=== PATIENT | male | born 1975 | race Caucasian/White ===

== ENCOUNTER 2025-01-01 21:29 | Observation (INO) | payer MEDICARE, OTHER, SELFPAY ==
[2025-01-01 19:09] VITALS: BP 146/125
[2025-01-01 19:25] LABS: Hematocrit 46.0 % (39.0-52.0); Hemoglobin 15.7 g/dL (13.0-18.0); Mean Corp Hgb Conc. 34.1 g/dL (33.0-37.0); Mean Corpuscular Volume 97.9 fL (80.0-94.0); Nucleated Red Blood Cells % 0 % (-); Platelet Count 234 10^3/uL (130-400); Red Cell Dist. Width 13.2 % (11.5-14.5)
--- NOTE | 2025-01-01 19:33 | ED.GENMED ---
History of Present Illness
General
Chief Complaint: Heart Rate Problem
Source: patient
Exam Limitations: none
Time Seen by Provider: 01/01/25 19:12
Nursing documentation reviewed up to this point in time: agreed with
History of Present Illness
History of Present Illness:
49 yo male with hx HTN, does not take Metoprolol as prescribed, here for fast heart rate. Pt arrested on DUI, during intake getting BP checked, found to have fast, irregular HR. No hx Afib. Does not feel palpitations. Denies CP, SOB, or any other
symptoms. He states he is being accused of having contraband which he denies and is requesting an xray to prove he has nothing in his abdomen, rectum.
Past History
Past History
ED Past Medical History: HTN
ED Past Surgical History: None
Social History
Tobacco: Smoker
Alcohol: Occasional
Drug: None
Personal:
Living: with family
Employment: Employed
Review of Systems
Review of Systems
Allergies reviewed?: Yes
All Other Systems: ROS reviewed and negative except as documented in HPI and ROS
Respiratory: Denies trouble breathing
Cardiac: Denies chest pain or palpitations
ABD/GI: Denies abdominal pain or nausea
Musculoskeletal: Denies edema
Skin: Reports no symptoms
Neurological: Reports no symptoms
Phy Exam
Physical Exam
Physical Exam:
GENERAL: No acute distress. A&Ox3.
CONSTITUTIONAL: Afebrile.
EYES: clear, conjunctivae normal
ENMT: moist mucus membranes, Pharynx nl
RESPIRATORY: Regular respirations, nonlabored, lungs clear.
CARDIOVASCULAR: Rapid HR, irregular. No murmurs, no rubs.
GI: Soft, nontender, normal BS
MUSCULOSKELETAL: Moves with ease. Well perfused.
SKIN: Warm, dry, pink
PSYCH: Normal mood and affect. Well kept, interactive and appropriate
NEUROLOGIC: Awake, alert and oriented. No focal neurological deficits
Scores
[id number] Score for Afib Stroke Risk
Age in Years (65=0, 65-74=1, >/=75=2): <65
Sex (Female=+1): Male
Congestive Heart Failure History (Yes=+1): No
Hypertension History (Yes=+1): Yes
Stroke/TIA/Thromboembolism History (Yes=+2): No
Vascular Disease History (Yes=+1): No
Diabetes Mellitus (Yes=+1): No
Score: 1
Anticoagulation Recommendations: Consider anticoagulation (as validated in nonvalvular fib)
Course
Orders/Labs/Results
Orders:
Orders
01/01/25 Dinner
Regular
At Your Request: Full Participation
01/01/25 19:08
Electrocardiogram (*1) Urgent
Reason for Study: Atrial Fibrillation
01/01/25 19:09
EKG- Treatment ONCE
01/01/25 19:13
Alcohol Urgent
Complete Blood Count/With Diff Urgent
Comprehensive Metabolic Panel Urgent
Magnesium Urgent
Comment: ADD ON
Phosphorus Urgent
Comment: ADD ON
TSH Urgent
Comment: ADDON
Troponin I Urgent
01/01/25 19:34
Diltiazem 125 mg/125 ml Nss [Cardizem] 125 mg in 125 ml IV NOW
Initial dose in mg/hr, then titrate:: 5
Titrate to keep:: Heart rate 80-100 bpm
Titrate by mg/hr:: 5 mg/hr
Frequency of titrations (minutes):: 15
Maximum dose in mg/hr:: 15
Diltiazem HCl [Cardizem] 10 mg IV NOW STA
01/01/25 19:35
Heparin 4,000 units IV NOW STA
CR Chest - 2 Views Urgent
Comment:
Reason For Exam: Afib w RVR new
01/01/25 19:39
CR Abdomen - 1 View Urgent
Comment:
Reason For Exam: R/O FB
01/01/25 19:45
PTT Urgent
Comment: Obtain baseline before beginning heparin infusion if not already collected
Heparin 48611 Units/250 ml 25,000 units in 250 ml IV PER PROTOCOL
Weight to be used for heparin protocol in kilograms (kg):: 97.4
Protocol:: Cardiac Tx/Acute Coronary
PTT Goal Range to be used:: PTT 73 to 111 seconds
Order type:: Initial
INITIAL Infusion Dose (UNITS/KG/hr) & then follow protocol:: 12 units/kg/hr
Infusion Dose in UNITS/hr & then follow protocol (UNITS/hr):: 1,000
INFUSION RATE in mL/hr & then follow protocol (mL/hr):: 10
PTT less than or equal to 64 seconds:: Increase rate by 200 units/hr (+ 2 mL/hr)
PTT 64.1 to 72.9 seconds:: Increase rate by 100 units/hr (+ 1 mL/hr)
PTT 73 to 111 seconds:: Target Range. No change in rate.
PTT 111.1 to 130.9 seconds:: Decrease rate by 100 units/hr (- 1 mL/hr)
PTT 131 to 199.9 seconds:: HOLD for 1 hr. Then decrease rate by 200 units/hr (- 2 mL/hr)
PTT greater than or equal to 200 seconds:: HOLD for 2 hrs & Notify Provider. Then decrease by 200 units/hr (-
2 mL/hr)
Lab follow-up:: Each change, PTT q6h until 2 consecutive are therapeutic. Then PTT
daily.
01/01/25 20:43
Add On- LAB Urgent
Tests Added?: TSH
Urine Drug Abuse Screen Urgent
Date Specimen was Collected: 01/01/25
Time Specimen was Collected: 23:43
01/01/25 21:05
Admit/Transfer Patient As Directed
Co-Sign Provider:
Level of Care: Observation services
Assign to:: Telemetry
Physician / Group: Sj Mejía
Diagnosis: atrial fibrillation
Reason for Telemetry: Arrhythmia
Date to Stop Telemetry: 01/04/25
Time to Stop Telemetry: 11:00
PRN Pain Medication Management As Directed
May give lesser potent ordered pain med per pt: Yes
preference::
Protocol:: Medication orders for pain may be administered in a
manner that supports deferring to patient preference
when the pt is:
- Requesting an ordered lesser potent pain medication.
Least to most potent pain medications are defined
as: acetaminophen < NSAID < tramadol < opioids
(morphine, oxycodone, hydromorphone).
- Requesting a lesser dose of the same medication IF
ORDERED.
- Requesting a less intrusive route of administration
if both routes are prescribed by the provider (PO <
IV).
01/01/25 21:06
Code Status As Directed
Resuscitation Status: Full Code
01/01/25 21:10
Add On- LAB Urgent
Tests Added?: mag, phos
01/01/25 22:34
Acetaminophen [Tylenol] 650 mg PO Q4HPRN PRN
Diltiazem 125 mg/125 ml Nss [Cardizem] 125 mg in 125 ml IV PER PROTOCOL
Continuous dose without titration in mg/hr:: 5
Additional Titration Instructions:: Do not titrate. Rate change by provider order only.
01/01/25 22:34
CARDIOLOGY CONSULT Routine
Consulting Provider: Kalina Baez
Was physician already notified: Yes
Activity As Directed
Activity Level: Ambulate
INT (Intravenous Needle Therapy) As Directed
Comment: maintain peripheral IV access
Intake/ Output As Directed
Frequency: Per unit guidelines
MSAS SCORE As Directed
MSAS Score 0-4: Repeat MSAS every 2 hours until 0-4 for three consecutive assessments, then every 4 hours x 48
hours.
MSAS Score 5-7: For MILD withdrawl symptoms. Repeat MSAS and RASS every 2 hours
MSAS Score 8-11: For MODERATE withdrawal symptoms. Repeat MSAS and RASS every 1 hour. Consider ICU or IMU
level of care.
MSAS Score > 11: For SEVERE withdrawal symptoms. Repeat MSAS and RASS every 1 hour. Notify provider, consider
ICU level of care.
MSAS Additional Instructions: If no improvement or no decrease in score from severe to moderate within 12
hours, consult psychiatry
MSAS Notify Provider: Notify provider if patient requires more than 10 mg of Lorazepam in eight hour period.
Vital Signs As Directed
Frequency: q4h
Weight As Directed
Frequency: Once
Comment: on admission
DX Deep Vein Thrombosis Video Routine
01/02/25 06:00
Cardiovascular Evaluation IN AM
01/02/25 18:00
Enoxaparin Sodium [Lovenox] 40 mg SC QPM
01/04/25 11:00
DC Protocol for Telemetry ONCE
Abnormal Lab Results
01/01/25
19:13
MCV 97.9 H fL
(80.0-94.0)
MCH 33.4 H pg
(27.0-31.0)
Absolute Monos (auto) 0.8 H 10^3/uL
(0.1-0.6)
Monocytes % 11.5 H %
(1.7-9.3)
Creatinine 0.6 L mg/dL
(0.7-1.3)
Glucose 189 H mg/dl
(70-99)
01/01/25 19:13
01/01/25 19:13
Vital Signs
Initial and Last Documented VS:
Initial Vital Signs
Temp Pulse Resp Pulse Ox
98.8 F 135 18 98
01/01/25 19:06 01/01/25 19:06 01/01/25 19:06 01/01/25 19:06
Last Documented Vital Signs
Temp Pulse Resp BP Pulse Ox
98.2 F 93 20 160/116 98
01/01/25 22:41 01/01/25 22:41 01/01/25 22:41 01/01/25 22:41 01/01/25 22:41
Equipment Operator Warehouse consulted with Physician
Equipment Operator Warehouse consulted with physician?: Yes
Name of Physician Consulted: Gila
MDM/Problems Addressed
Differential Diagnosis Includes:
Afib RVR
MDM/Problems Addressed:
49 yo male with hx HTN, does not take Metoprolol as prescribed, here for fast heart rate. Pt arrested on DUI, during intake getting BP checked, found to have fast, irregular HR. No hx Afib. Does not feel palpitations. Denies CP, SOB, or any other
symptoms. He states he is being accused of having contraband which he denies and is requesting an xray to prove he has nothing in his abdomen, rectum.
EKG: A-fib with RVR heart rate 112
8:15 p.m.
CBC normal
CMP normal
Troponin within normal limits
Plan: Cardizem for rate control, heparin drip started, admit to hospitalist
Hospitalist notified of admission
*Pulse Oximetry
SaO2: 98
Oxygen Mode of Delivery: Room air
Patient hypoxic: no
*Critical Care Note
Total Time (30-74mins, 75-104mins- exclusive of procedures): Not Applicable
ED Attending Note
-
Portions of this chart may have been created with voice recognition software.� Occasional wrong word or��sound alike� substitutions may have occurred due to the inherent limitations of voice recognition software.
Discharge Plan
Departure
Patient Disposition: Admit
Date of Disposition: 01/01/25
Time of Disposition: 20:20
Admit to: Telemetry
Presentation/result/management discussed w/ accepting MD/DO: Hospitalist
Condition: Fair
Discharge Problem:
New onset a-fib
Interventions
Interventions:
*Risk Screen - Suicide Last Done: 01/01/25 19:10
*General Assessment Last Done: 01/01/25 19:10
*Neglect/Abuse Screening Last Done: 01/01/25 19:10
*ED- Fall Risk Assessment Last Done: 01/01/25 19:10
*ED COVID-19 Vaccine History Last Done: 01/01/25 19:10
*Nursing Disposition Last Done: 01/01/25 22:04
ED- Cardiac Assessment Last Done: 01/01/25 19:32
ED- Pulmonary Assessment Last Done: 01/01/25 19:32
Discharge Date and Time
Discharge Date/Time: 01/01/25 22:05
[2025-01-01] MEDS: CARDIZEM 10 MG IV (19:38)
[2025-01-01] MEDS: CARDIZEM 125 IV (19:42)
[2025-01-01 19:54] LABS: ALT (SGPT) 32 U/L (0-50); AST (SGOT) 35 U/L (17-59); Albumin 4.7 g/dl (3.5-5.0); Alkaline Phosphatase 50 U/L (38-126); Blood Urea Nitrogen 14 mg/dl (9-20); Calcium 9.5 mg/dl (8.4-10.2); Carbon Dioxide 27 mmol/L (22-30); Chloride 105 mmol/L (98-107); Estimated Creatinine Clearance > 125 ml/min; Glucose 189 mg/dl (70-99); Potassium 4.6 mmol/L (3.5-5.1); Sodium 139 mmol/L (135-145); Total Protein 8.1 g/dl (6.3-8.2); eGFR > 60.00
[2025-01-01 19:59] LABS: Troponin I < 0.012 ng/ml
[2025-01-01 20:00] VITALS: BP 131/94
[2025-01-01 20:05] LABS: APTT 26.4 Sec (23.4-35.0)
[2025-01-01] MEDS: HEPARIN 4000 UNITS IV (20:14)
[2025-01-01] MEDS: HEPARIN 25000 UNITS/250 ML IV (20:15)
--- NOTE | 2025-01-01 20:23 | HPS.HSE ---
Family Physician
-
Family Physician: [facility] [place]
Chief Complaint
-
irregular heart rate
History of Present Illness
Patient is a 49-year-old male with past medical history significant for hypertension who presented to [facility] ED for evaluation for irregular heart rate. Patient was undergoing standard evaluation at [facility] for intake when nursing realized patient had a
irregular heart rate that was tachycardic and was sent to ED for evaluation. EKG in ED showed atrial fibrillation with RVR. Patient states he has never had atrial fibrillation before. He denies any symptoms, no chest pain, palpitations, dizziness or
shortness of breath.
Medical History
Past Medical History
Past Medical History: Reports Other
Additional Past Medical History:
hypertension
Past Surgical History: Reports None
Social History
Tobacco: Smoker (0.75 pack per day)
Alcohol: Daily (0.5 pint of vodka per day)
Drug: None
Living: Alone
Employment: Not Employed
Family History
Family History: Other (Mother: CAD, Hx VA; Father: DM, Hx DVT, Alzheimer's)
Allergies / Home Medications
Allergies reflects when Allergies were last updated in [facility].
Home Medications with original date entered in [facility]
Allergy/Medication List:
Allergies
Allergy/AdvReac Type Severity Reaction Status Date / Time
No Known Allergies Allergy Unverified 02/24/13 17:22
Home Medications
No Meds [No Current Medications] 01/01/25
Review of Systems
-
History Source: Patient
Constitutional: Reports No Symptoms
EENT: Reports No Symptoms
Respiratory: Reports No Symptoms
Cardiac: Reports No Symptoms
Abdomen/GI: Reports No Symptoms
: Reports No Symptoms
Musculoskeletal: Reports No Symptoms
Skin: Reports No Symptoms
Neurological: Reports No Symptoms
Endocrine: Reports No Symptoms
Hematologic/Lymphatic: Reports No Symptoms
Psych: Reports No Symptoms
Physical Exam
Vital Signs
Vital Signs
Temp Pulse Resp BP Pulse Ox
98.8 F 94 17 146/125 98
01/01/25 19:06 01/01/25 19:45 01/01/25 19:45 01/01/25 19:38 01/01/25 19:45
Physical Exam
General: Well Developed, Well Nourished, No Apparent Distress, Comfortable, Conversant and Obese
HEENT: NormoCephalic, Moist mucous membranes and Atraumatic
Respiratory: Clear and Non Labored Respirations
Cardiac: S1/S2 and Irregular Rhythm; No Murmur, Rub or Gallop
Breast: Deferred by me
GI: Soft, Non Tender, Non Distended and Normal Bowel Sounds; No Organomegaly
Rectal: Deferred by Provider
Genito-urinary: Deferred by me
Musculoskeletal: No Clubbing, No Cyanosis and No Edema
Skin: Warm and IV/Catheter Site
Neuro: Awake, AO x 3 and Nonfocal/grossly intact
Hematologic/Lymphatic: No Lymphadenopathy
Psych: Calm
Laboratory Results
-
01/01/25 19:13
01/01/25 19:13
Laboratory Results
APTT 26.4 Sec (23.4-35.0) 01/01/25 19:45
Total Bilirubin 0.6 mg/dl (0.2-1.3) 01/01/25 19:13
AST 35 U/L (17-59) 01/01/25 19:13
ALT 32 U/L (0-50) 01/01/25 19:13
Alkaline Phosphatase 50 U/L (38-126) 01/01/25 19:13
Troponin I < 0.012 ng/ml 01/01/25 19:13
Data Reviewed
-
Medical Tests (Nuc Med, Echo, EKG etc): Report Reviewed by me (EKG: ATRIAL FIBRILLATION WITH RAPID VENTRICULAR RESPONSE)
Lab Data: Labs Reviewed by me
Impression/Plan
-
IMPRESSION/PLAN:
#new onset atrial fibrillation
EKG: ATRIAL FIBRILLATION WITH RAPID VENTRICULAR RESPONSE
- Admit to telemetry
- Consult Cardiology
- IV Diltiazem
- no anticoagulant requirement ([id number] Score 1)
#hypertension
noncompliant with prescribed medication
- monitor VS
#alcohol dependency
reports drinking 0.5 pint of vodka per day, last drank last evening (12/31/2024)
- MSAS score
- consider adding protocol if signs of withdraw present
Code status: Full code
DVT prophylaxis: Lovenox sq
--- NOTE | 2025-01-01 20:30 | W.PN.UPDATE ---
Update Note
Progress Note Update
Patient seen in conjunction with LAST REPAIRER. I agree with the findings on history and physical exam. I concur with assessment plan unless stated otherwise.
Briefly, this is a 49-year-old with past medical history of hypertension was on metoprolol but does not take it regularly presenting to the emergency department from incarceration where he was being held for a DUI. During the intake patient
reported palpitations and was found to be tachycardic. He had no other symptoms and was brought to the emergency department for evaluation.
He denies any prior history of atrial fibrillation. He drinks alcohol, denies drug use.
In the emergency department he was tachycardic to S1 is 130 and found to be in atrial fibrillation. Blood pressure was 140/100 with a pulse rate of the 90s currently. He is afebrile with a normal oxygen saturation on room air. His troponin is
negative. ECG shows atrial fibrillation at a rate of 112. CBC is unremarkable, electrolytes BUN/creatinine were normal.
Patient was placed on diltiazem drip in the emergency department.
Assessment and plan
New atrial fibrillation�
- admit to telemetry
- continue diltiazem at fixed rate
- CHADS2 = 1, low risk for CVA. Hold off AC for now. Consider low dose aspirin if no bleeding risk
- echo, tsh, drug screen, cardiology consult
- no h/o etoh withdrawal, drinks 1 pint vodka daily. Last drink today. MSAS protocol for now.
DVT PPX - SCDs
Code status - Full Code
[2025-01-01 21:00] VITALS: BP 143/105
[2025-01-01 21:33] LABS: Magnesium 1.9 mg/dl (1.6-2.3)
[2025-01-01 21:47] LABS: TSH 0.94 uIU/ml (0.47-4.68)
--- NOTE | 2025-01-01 22:25 | PTCARENOTE ---
Pt received from ED via stretcher at 2215. Pt pleasant, AAOx3, VSS, absent of pain, and able to ambulate into room. Pt receptive to room and call kerns. Pt bed in lowest position and call kerns within reach. Pt educated on importance of call kerns
usage, pt relays understanding and cooperation. Will continue with current plan of care.
[2025-01-01 22:41] VITALS: BP 160/116
--- NOTE | 2025-01-01 22:51 | W.PN.UPDATE ---
Update Note
Progress Note Update
-Patient had pauses up to 3.56 sec, bp 152/93, hr 85. asymptomatic.
-Currently on Cardizem gtt will hold and EKG ordered.
-Will continue tele
[2025-01-01 23:52] VITALS: BMI 29.5
--- NOTE | 2025-01-01 23:55 | PTCARENOTE ---
At 2236, pt monitor showed a 3.56sec pause. As pt was currently receiving Cardizem at 5mls/hr, this RN notified Christen VACA. FILTER TANK TENDER HELPER ordered for Cardizem to be held and EKG to be obtained. This RN held Cardizem gtt and completed EKG. At 2355,
pt showed to be in NSR on monitor. Will continue with current plan of care.
[2025-01-02] VITALS (7 sets, daily range): BP systolic 123–159; BP diastolic 86–108
[2025-01-02] MEDS: THIAMINE INJECTION 200 MG IV ×2 (08:21→19:19)
[2025-01-02] MEDS: FOLVITE 1 MG PO (08:21)
[2025-01-02 08:47] LABS: HDL Cholesterol 78 mg/dl; LDL Cholesterol, Calculated 136 mg/dl; Very Low Density Lipoprotein 15 mg/dl (0-30)
--- NOTE | 2025-01-02 10:34 | CON.CAR ---
Addendum entered and electronically signed by Jesus Collier MD 01/02/25 16:12:
I saw and examined the patient.
The Medical Records Secretary's note was reviewed and I agree with the note.
Comment:
GEN: No distress, awake, Ox3
HEENT: supple, anicteric, mmm
LUNGS: CTA, no wheezes/rales
CV: Reg, S1/S2, 1/6 syst LSB, no gallop
ABD: soft, BS+, NT/ND
EXT: No edema
NEURO: Gross non-focal
SKIN: No rash
Plan:
49-year-old male with past medical hypertension, alcohol use who was admitted to correctional facility for DUI presents with new onset atrial flutter. The patient was at penitentiary and was found to be tachycardic and was sent to the emergency room and
was found to be in rapid atrial flutter. He was placed on a Cardizem drip and spontaneous converted back into sinus rhythm.
CHADS VASC is 1. Plan is to start Xarelto 20mg daily. Start Cardizem 120mg daily
Check Echo today.
Recommend avoiding alcohol.
Will arrange for outpatient monitor and office visit follow-up after monitor to better assess atrial flutter burden. This will be done when he is out of penitentiary.
Original Note:
Consultation
Consultation Request
Date/Time Consultation Performed: 01/02/25
Requesting Provider: Dr. Mejía
Performing Provider: Alana Buckner PA-C for Dr. Collier
Reason for Consultation: afib
Medical History
-
Chief Complaint: tachycardia
History of Present Illness:
Patient is a 49-year-old male with past medical history of hypertension, alcohol use disorder, ongoing tobacco use who was noted to be tachycardic while imprisoned for DUI and sent to [facility] for further evaluation. He reports he felt
stressed/anxious, however denies specific feelings of palpitations, associated chest pain, shortness of breath, lightheadedness. He denies history of arrhythmias in the past to his knowledge. He was placed on IV Cardizem drip overnight and
spontaneously converted to sinus rhythm. Cardiology consulted for evaluation. He reports he has recently cut down on his alcohol use, goes to and outpatient therapy and rehab program.
PMH:
HTN
ETOH use disorder
Ongoing tobacco use
Past Medical History
Past Medical History: Other (in HPI)
Social History
Tobacco: Smoker (1 ppd)
Alcohol: Daily (2 doubles daily)
Drug: None
Personal:
Living: Alone
Employment: Employed (electro mechanical engineer)
Family History
Family History: CAD and Diabetes
Allergies / Home Medications
Allergy/AdvReac Type Severity Reaction Status Date / Time
No Known Allergies Allergy Unverified 02/24/13 17:22
�Medication �Instructions �Recorded �Confirmed �Type
No Meds [No Current Medications] 01/01/25 01/01/25 History
Review of Systems
-
History Source: Patient
All other systems: Negative unless noted
Physical Exam
Vital Signs
Temp Pulse Resp BP Pulse Ox
98.5 F 71 16 148/107 98
01/02/25 07:00 01/02/25 07:00 01/02/25 07:00 01/02/25 07:00 01/02/25 07:00
Lab Results
01/01/25 19:13
01/01/25 19:13
Troponin I < 0.012 ng/ml 01/01/25 19:13
Physical Exam
General: No Apparent Distress and Comfortable
HEENT: Normocephalic, Anicteric and Moist Mucous Membranes
Respiratory: Clear and Non Labored Respirations
Cardiac: S1/S2 and Regular Rhythm
GI: Soft, Non Tender, Non Distended and Normal Bowel Sounds
Musculoskeletal: No Clubbing, No Cyanosis and No Edema
Skin: Warm and Dry
Neuro: AO x 3
Impression / Plan
-
Primary Commercial Loan Coordinator: none
Assessment:
Presentation with tachycardia
Atrial fibrillation vs aflutter with RVR, s/p spontaneous conversion to SR, new diagnosis
ETOH withdrawal
HTN, uncontrolled
ETOH use disorder
Ongoing tobacco use
ECHO 01/02/25: pending
Plan:
- Patient presented with tachycardia noted during physical in care home.
- EKGs read as atrial fibrillation, however on my review may be atrial flutter.
- Was started on IV Cardizem overnight and spontaneously converted to sinus rhythm. Maintaining sinus rhythm at this time
- Repeat EKG
- Check echo
- CXR without acute process
- TSH within normal limits
- Troponin negative x 1
- Discussed importance of alcohol and tobacco cessation.
- Given uncontrolled hypertension and atrial fibrillation, will plan to add po Cardizem CD
- [id number] score of 1 given hypertension. Discussed anticoagulation at least for short term and patient agreeable. Will assess cost to patient of Xarelto. he denies recent falls/bleeding issues.
- Will arrange outpatient cardiac follow-up
Data Reviewed
-
EKG: Tracing Personally Visualized and interpreted
Radiology: Report Reviewed by me
Labs: Labs Reviewed by me
Old Records: Reviewed
--- NOTE | 2025-01-02 11:10 | W.PN.HOSP.TC ---
Today's Communication/Plan
-
see PN
Assessment / Plan
Assessment / Plan
49yo M with PMHx of HTN, daylty alcohol consumption (2-3 drinks of vodka) brought by police after was stopped for DUI, found Afib with RVR in ED and also managed for withdrawal.
A/P:
#Afib with RVR, new onset
most liekly caused by alcohol
Cardio consult: recommended initial anticoagulation
TSH WNL
Echo
telemetry
COnverted to sinus on cardezem - continue oral
#Essential HTN
titrate to normotension
#Alcohol abuse with withdrawal
thiamine/FOlate
MSAS and Ativan PRN - mild withdrawal
Alcohol cessation counseling
CM for rehab
#Hyperglycemia
on CMP on admission
check HgbA1c
no Hx of DM
#macrocytosis
2/2 alcohol consumption
DVT ppx Xarelto
Full code
I have spent at least 51min reviewing chart, test results, communication with consultants and providing direct patient care
Anticipated Discharge: 24 - 48 hours
Subjective/Interval History
-
Date of Service: January 02, 2025
Objective Data
-
Vital Signs:
Vital Signs
Temp Pulse Resp BP Pulse Ox
98.5 F 71 16 148/107 98
01/02/25 07:00 01/02/25 07:00 01/02/25 07:00 01/02/25 07:00 01/02/25 07:00
I&O
01/01/25 01/02/25 01/03/25
06:59 06:59 06:59
Intake Total 300 / 300
Balance 300 / 300
Review of Systems
-
History Source: Patient
All other systems: Reviewed and negative
Physical Exam
-
General: No Apparent Distress
HEENT: Normocephalic
Respiratory: Clear to Auscultation
Cardiac: Regular Rhythm
GI: Soft, Nontender and Nondistended
Musculoskeletal: No Clubbing, No Cyanosis and No Edema
Neuro: Awake, Alert, Oriented, AO x 3 and Tremors
Psych: Calm
[2025-01-02] MEDS: CARDIZEM CD 120 MG PO (11:36)
[2025-01-02 12:12] LABS: Glycohemoglobin (HgbA1c) 5.5 % (4.0-5.6)
--- NOTE | 2025-01-02 14:15 | CM ---
Initial assessment completed. Patient is a 49-year-old male with past medical history significant for hypertension who presented to [facility] ED for evaluation for irregular heart rate. Patient admitted from [facility]. Per chart, patient was stopped by police
for DUI. Per chart, patient attends AA and OP therapy rehab for ETOH prior to arrest.
Patient admitted obs. OOBS form verbally reviewed, copy on chart
Plan: Return to [facility] vs home
[2025-01-02] MEDS: XARELTO 20 MG PO (17:13)
[2025-01-03 03:00] VITALS: BP 145/106
[2025-01-03] MEDS: ATIVAN 1 MG PO (03:56)
[2025-01-03 07:00] VITALS: BP 153/109
[2025-01-03] MEDS: THIAMINE INJECTION 200 MG IV (08:25)
[2025-01-03] MEDS: FOLVITE 1 MG PO (08:25)
--- NOTE | 2025-01-03 09:04 | W.PN.CARDCBS ---
Today's Communication / Plan
-
Had some sinus bradycardia overnight. Would stop diltiazem and start Toprol 12.5 mg daily.
Blood pressure is mildly elevated. Will stop diltiazem and start amlodipine 5 mg daily
Continue Xarelto
Okay for [facility] to [facility] from cardiology standpoint
Will arrange follow-up with heart monitor and then office visit once he is out of custodial.
Impression / Plan
-
Primary Vacuum Tank Tender: none
Assessment:
Presentation with tachycardia
Aflutter with RVR, s/p spontaneous conversion to SR, new diagnosis
ETOH withdrawal
HTN, uncontrolled
ETOH use disorder
Ongoing tobacco use
ECHO 01/02/25: EF 55 to 60% with no significant valve disease.
Plan:
-Remains in sinus rhythm. Having some bradycardia overnight. Will stop Cardizem and start Toprol 12.5 mg daily. Will add amlodipine 5 mL daily to help with blood pressure.
-Echo with preserved ejection fraction and no significant valve disease.
- CXR without acute process
- TSH within normal limits
- Troponin negative x 1
- Discussed importance of alcohol and tobacco cessation.
- [id number] score of 1 given hypertension. Discussed anticoagulation at least for short term and patient agreeable. Will assess cost to patient of Xarelto. he denies recent falls/bleeding issues.
- Will arrange outpatient cardiac follow-up. Plan will be for him to reach out when he is out of custodial to get set up with a 7-day heart monitor and then I will see him back in the office.
Progress Note - Vacuum Tank Tender
Subjective
Date of Service: January 03, 2025
Overall feels well. Having some mild withdrawal symptoms. Heart rates were in the 40s to 50s overnight but no dizziness. No further atrial arrhythmias.
Objective
Labs:
01/01/25 19:13
01/01/25 19:13
Labs
Hgb 15.7 g/dL (13.0-18.0) 01/01/25 19:13
Hct 46.0 % (39.0-52.0) 01/01/25 19:13
Plt Count 234 10^3/uL (130-400) 01/01/25 19:13
APTT 26.4 Sec (23.4-35.0) 01/01/25 19:45
Sodium 139 mmol/L (135-145) 01/01/25 19:13
Potassium 4.6 mmol/L (3.5-5.1) 01/01/25 19:13
BUN 14 mg/dl (9-20) 01/01/25 19:13
Creatinine 0.6 mg/dL (0.7-1.3) L 01/01/25 19:13
Glucose 189 mg/dl (70-99) H 01/01/25 19:13
Troponins
01/01/25
19:13
Troponin I < 0.012
Vital Signs and I&O:
Vital Signs
Temp Pulse Resp BP Pulse Ox
97.6 F 63 17 153/109 98
01/03/25 07:00 01/03/25 07:00 01/03/25 07:00 01/03/25 07:00 01/03/25 07:00
Vital Signs
Temp Pulse Resp BP Pulse Ox
97.6 F 63 17 153/109 98
01/03/25 07:00 01/03/25 07:00 01/03/25 07:00 01/03/25 07:00 01/03/25 07:00
Intake & Output
01/01/25 01/02/25 01/03/25 01/04/25
06:59 06:59 06:59 06:59
Intake Total 300 / 300
Balance 300 / 300
Physical Exam
Physical Exam
GEN: No distress, awake, Ox3
HEENT: supple, anicteric, mmm
LUNGS: CTA, no wheezes/rales
CV: Reg, S1/S2, 1/6 syst LSB, no gallop
ABD: soft, BS+, NT/ND
EXT: No edema
NEURO: Gross non-focal
SKIN: No rash
[2025-01-03] MEDS: CARDIZEM CD PO (09:15)
[2025-01-03] MEDS: NORVASC 5 MG PO (09:38)
[2025-01-03] MEDS: TOPROL XL 12.5 MG PO (09:38)
--- NOTE | 2025-01-03 09:55 | W.PN.HOSP.TC ---
Today's Communication/Plan
-
DC
Assessment / Plan
Assessment / Plan
49yo M with PMHx of HTN, daylty alcohol consumption (2-3 drinks of vodka) brought by police after was stopped for DUI, found Afib with RVR in ED and also managed for withdrawal. No signs of withdrawal on the day of D/C. Ativan received >12h before
discharge. Medically stable for d/c to shelter
A/P:
#Afib with RVR, new onset
most likely caused by alcohol
Cardio consult: recommended initial anticoagulation
TSH WNL
Echo
telemetry
Converted to sinus on Cardizem - developed bradycardia on oral doses, so switch to Amlodipine with advise in outpatient f/u.
#Essential HTN
titrate to normotension
#Alcohol abuse with withdrawal
thiamine/FOlate
MSAS and Ativan PRN - mild withdrawal
Alcohol cessation counseling
CM for rehab
#Hyperglycemia
on CMP on admission
HgbA1c 5.5%
no Hx of DM
#macrocytosis
2/2 alcohol consumption
DVT ppx Xarelto
Full code
I have spent at least 51min reviewing chart, test results, communication with consultants and providing direct patient care
Anticipated Discharge: Today
Subjective/Interval History
-
Date of Service: January 03, 2025
Objective Data
-
Vital Signs:
Vital Signs
Temp Pulse Resp BP Pulse Ox
97.6 F 63 17 153/109 98
01/03/25 07:00 01/03/25 07:00 01/03/25 07:00 01/03/25 07:00 01/03/25 07:00
I&O
01/02/25 01/03/25 01/04/25
06:59 06:59 06:59
Intake Total 300 / 300 240 / 240
Balance 300 / 300 240 / 240
Review of Systems
-
History Source: Patient
All other systems: Reviewed and negative
Physical Exam
-
General: No Apparent Distress
HEENT: Normocephalic
Respiratory: Clear to Auscultation
GI: Soft, Nontender and Nondistended
Neuro: Awake, Alert, Oriented and AO x 3; Negative Tremors
Psych: Calm
--- NOTE | 2025-01-03 10:00 | W.DCSUMMARY ---
Discharge Summary
Discharge Data
Date of Admission: 01/01/25
Date of Discharge: 01/03/25
-
Pending Results: No
Hospital Course
49yo M with PMHx of HTN, daylty alcohol consumption (2-3 drinks of vodka) brought by police after was stopped for DUI, found Afib with RVR in ED and also managed for withdrawal. No signs of withdrawal on the day of D/C. Ativan received >12h before
discharge. Medically stable for d/c to senior care
I have spent at least 51min reviewing chart, test results, communication with consultants and providing direct patient care'
Patient was manage dofr:
#Afib with RVR, new onset
#Essential HTN
#Alcohol abuse with withdrawal
#Hyperglycemia
#macrocytosis
Discharge Plan
-
Patient Disposition: [facility]
Discharge Diagnosis/Procedures: new onset Afib
Diet: Low Cholesterol
Activity: As tolerated
Others Tests: 7 day desk monitor, Dr. Collier's office will call you to schedule date/time to come in for placement
Referrals:
Dayana Rodriguez PA-C [Specified Professional Personl, Cardiology] - 01/31/25 7:40 am
Referral Note: You have a cardiology follow-up appointment at the [facility]. Please call with questions
[facility] [Family Provider, General]
Prescriptions:
New
amlodipine 5 mg Tablet
5 mg PO DAILY Qty: 30 0RF
folic acid 1 mg Tablet
1 mg PO DAILY Qty: 30 0RF
metoprolol succinate 25 mg Tablet Extended Release 24 Hr
12.5 mg PO DAILY Qty: 30 0RF
thiamine mononitrate (vit B1) 100 mg Tablet
100 mg PO DAILY Qty: 30 0RF
rivaroxaban [Xarelto] 20 mg Tablet
20 mg PO QPM Qty: 30 0RF
Discharge Orders:
Discharge Patient (As Directed); Ordered 01/03/25
Ordered By: Clifford Capellan
Discharge Date and Time
Print Language: ARMENIAN
[2025-01-03 11:06] VITALS: BP 156/105
[2025-01-03 11:38] VITALS: BP 134/88
--- NOTE | 2025-01-03 11:49 | CM ---
Patient will d/c today. Will return to [facility]
Report: [phone]
== END 2025-01-03 12:15 ==
LOC: 4 WEST ACU 21:29
PROVIDERS: Nurse Practitioner Family; Registered Nurse; ADMITTING PHYSICIAN Internal Medicine; ATTENDING PHYSICIAN Internal Medicine; CONSULT PHYSICIAN Internal Medicine Cardiovascular Disease; EMERGENCY PHYSICIAN Emergency Medicine
DX: F10.139 Alcohol abuse with withdrawal, unspecified (principal); R00.0 Tachycardia, unspecified; I11.9 Hypertensive heart disease without heart failure; F17.210 Nicotine dependence, cigarettes, uncomplicated; I48.91 Unspecified atrial fibrillation; R00.1 Bradycardia, unspecified; I48.92 Unspecified atrial flutter; I45.10 Unspecified right bundle-branch block; R73.9 Hyperglycemia, unspecified; D75.89 Other specified diseases of blood and blood-forming organs; Z91.148 Patient's other noncompliance with medication regimen for other reason; Z56.0 Unemployment, unspecified; Z83.3 Family history of diabetes mellitus; Z82.49 Family history of ischemic heart disease and other diseases of the circulatory system; Z79.01 Long term (current) use of anticoagulants; Z65.3 Problems related to other legal circumstances
CPT/HCPCS: 71046; 74018; 80053; 80061; 80306; 82077; 83036; 83735; 84100; 84443; 84484; 85025; 85730; 87070; 93005; 93306; 96374; 96375; 96376; 99285; G0378

== ENCOUNTER 2025-04-23 06:26 | Day surgery (SDC) | payer MEDICARE, SELFPAY ==
[2025-04-07 09:20] VITALS: BMI 32.1
[2025-04-07 09:45] LABS: Hematocrit 48.9 % (39.0-52.0); Hemoglobin 16.8 g/dL (13.0-18.0); Mean Corp Hgb Conc. 34.4 g/dL (33.0-37.0); Mean Corpuscular Volume 98.6 fL (80.0-94.0); Nucleated Red Blood Cells % 0 % (-); Platelet Count 226 10^3/uL (130-400); Red Cell Dist. Width 13.2 % (11.5-14.5)
[2025-04-07 10:00] LABS: ALT (SGPT) 21 U/L (0-50); AST (SGOT) 21 U/L (17-59); Albumin 4.8 g/dl (3.5-5.0); Alkaline Phosphatase 67 U/L (38-126); Blood Urea Nitrogen 18 mg/dl (9-20); Calcium 9.6 mg/dl (8.4-10.2); Carbon Dioxide 30 mmol/L (22-30); Chloride 103 mmol/L (98-107); Estimated Creatinine Clearance 120 ml/min; Glucose 128 mg/dl (70-99); Magnesium 2.0 mg/dl (1.6-2.3); Potassium 4.7 mmol/L (3.5-5.1); Sodium 138 mmol/L (135-145); Total Protein 8.4 g/dl (6.3-8.2); eGFR > 60.00
[2025-04-07 10:01] LABS: INR 1.77; PT 20.8 Sec (11.4-14.6)
[2025-04-23] VITALS (9 sets, daily range): BP systolic 100–116; BP diastolic 58–82
--- NOTE | 2025-04-23 07:39 | ITS.CL.ABL ---
Filter Tank Tender Helper Head - Ablation
Ablation
Procedure Report:
Primary Feather Cutting Machine Feeder: Dr Shaka Collier
Procedure Date: 04/23/2025
Patient History:
Patient is a pleasant 50-year-old male with a past medical history significant for hypertension, tobacco use disorder, alcohol use, suspected sleep apnea, obesity, symptomatic typical atrial flutter, symptomatic paroxysmal atrial fibrillation.
See H&P for complete details.
Indication:
Symptomatic paroxysmal atrial fibrillation
Symptomatic typical atrial flutter
Arrhythmia Specific History:
Prior Medical Therapies for Rate and Rhythm Control:
X Beta-tanvir
[ ] Calcium channel-tanvir
[ ] Amiodarone
[ ] Dronederone
[ ] Sotalol
[ ] Flecainide
[ ] Dofetilide
[ ] Options limited by bradycardia
[ ] Options limited by comorbid renal disease
Prior Procedural Therapies for AF/AFL:
[ ] Cardioversion
[ ] Pulmonary Vein Isolation
[ ] Posterior Wall Isolation
[ ] Additional lines (Specify)
[ ] Surgical Young-MAZE or PVI (Specify)
Procedure Performed:
X AF ablation procedure (72602) - includes LA/CS pacing, trans-septal, 3D mapping, + ICE
[ ] +IV drug (08580)
X +Other Arrhythmia (97382) - Atrial Flutter (CTI RFA)
[ ] +Other AF Line/ablation (50779)
Risks and expected recovery has been explained in detail. Alternative options have been explored, and in a shared-decision making fashion we have decided that this was the most appropriate procedure.
Method:
NPO status confirmed. Grounding pad applied. Defibrillator pads applied. Continuous surface ECG, pulse oximetry, and blood pressure were monitored. Procedure was performed under general anesthesia, with anesthesia services.
Both groins were clipped, prepped with Chloraprep, and draped in sterile fashion. Time out was called. Local anesthesia administered with bupivacaine. The right femoral vein was accessed for catheter placement, using ultrasound guidance (saved to
record), micro-puncture needle/wire, and modified seldinger technique. 3 sheaths were placed. The following catheters were used:
X TactiFlex SE (D/F Curve) ablation catheter
X Viewflex 9Fr ICE catheter
X Inquiry decapolar 6Fr diagnostic catheter
[ ] CRD Hex 6Fr
X FlexCath Contour 10 Fr with PulseSelect PFA Catheter
X Advisor HD Grid Mapping Catheter, SE
[ ]Other: [ ]
Intracardiac ultrasound (ICE) was carefully advanced into the right atrium to guide sheath placement over a J-wire, catheter placement, guide trans-septal puncture, identify potential complications, identify anatomic structures and ensure proper
contact between ablation catheter and tissue.
A multipolar catheter were advanced to the coronary sinus. A mapping / ablation catheter (3.5 mm tip TactiFlex D/F SE irrigated ablation catheter through long steerable sheath) was used to record and pace. Three-dimensional electroanatomic mapping
was utilized with careful attention to anatomic landmarks, including the coronary sinus, IVC-RA and SVC-RA junction, tricuspid valve annulus, and region of the His bundle electrogram. Clockwise and counterclockwise trans-isthmus times were
determined. An ablation line was created from the tricuspid annulus to the IVC in the 6:00 position ([employer] [employer] clock/caudal EAM projection). Power was set to 35 Zee with careful monitoring of impedance, AV conduction, power, and temperature. Ablation
continued until a line was complete from the tricuspid valve annulus to the IVC-RA junction. Clockwise and counterclockwise trans-isthmus times were determined, and RA activation patterns confirmed bidirectional block.
Next, we turned our attention to the AF Ablation.
Heparin was given prior to trans-septal puncture. Heparin was given to achieve and maintain a target ACT of 300-400 seconds throughout the procedure.
Trans-septal access was performed under ICE guidance. The trans-septal puncture was performed with a SafeSept wire through a Brockenbrough needle assembly through the steerable sheath. The wire was visualized as it entered the LSPV and system
advanced under ICE guidance and fluoroscopy into the LA. The Brockenbrough needle assembly, SafeSept wire and sheath dilator were removed under negative pressure. LA pressure was measured and recorded.
ICE and 3D mapping was performed to identify relevant cardiac structures. A careful 3D map was created to assess for regions of low-voltage and abnormal electrogram signals using HD grid mapping catheter and PulseSelect catheter. Additional mapping
was performed as outlined below.
Prior to ablation, glycopyrrolate was provided. PulseSelect catheter was advanced over J-wire to the ostium of each vein. Pulmonary vein isolation was performed with ostial and antral lesions in a circumferential manner. Contact was visualized via
EAM, ICE, fluoroscopy, and EGM signals. Following completion of ablation lesions, a post-ablation voltage/activation map was performed in sinus rhythm. Entrance and exit block were confirmed for each vein.
Catheter and sheath were removed from the left atrium and post-ablation intracardiac echo evaluation was consistent with pre-ablation with no changes and no pericardial effusion and there is no left atrial thrombus or left ventricle thrombus seen.
Electrophysiology study was performed. Reassessment of the CTI ablation line was performed demonstrating widely spaced double potentials and persistent bidirectional block. Hemostasis was obtained with figure of 8 stitch for each groin and with
manual pressure. Protamine was used for reversal.
Estimated Blood Loss
5 mL
Complications
None
Fluoroscopy: 2.6 minutes; 8.0 mGy; DAP 1.2
LA Pressure
Pre: 17 mmHg
Post: 18 mmHg
Baseline Intervals:
Rhythm: SR
KY: 166 ms
QRS: 87 ms
QT: 386 ms
QTc: 407 ms
Post-Procedure Intervals:
KY: 158 ms
QRS: 86 ms
QT: 414 ms
QTc: 423 ms
AVWB: 390 ms
AVNERP: 600/280 ms
AERP: 600/220 ms
Recommendations
- Bedrest with straight-leg precautions as ordered
- Anticipate same day discharge if patient meeting clinical metrics
- Resume home medications as indicated
- Ok to resume anticoagulation tonight if patient and groin sites stable
- Plan for follow-up in office as scheduled
Jos Cabral DO, FACC, RS
Clinical Cardiac Extrusion Die Repair Manager
cc: Dr Shaka Collier; Dr Marissa Rodriguez
[2025-04-23 09:23] LABS: ACT-LR - POC 342 Seconds (116-155)
[2025-04-23 09:59] LABS: ACT-LR - POC 369 Seconds (116-155)
[2025-04-23 10:18] LABS: ACT-LR - POC 160 Seconds (116-155)
[2025-04-23 14:43] LABS: ACT-LR - POC > 397 Seconds (116-155)
--- NOTE | 2025-04-23 15:57 | W.PN.UPDATE ---
Update Note
Progress Note Update
Pt seen post PFA. Right groin site without ht/bleeding. OOB ambulating. Post EKG NSR 70s w/inc RBBB. Resume xarelto tonight. Followup with Dr. Collier as scheduled. Home today if groin site/tele remain stable.
== END 2025-04-23 14:30 | disposition home or self-care (01) ==
LOC: CATH 06:26
PROVIDERS: ATTENDING PHYSICIAN Internal Medicine Cardiovascular Disease; FAMILY PHYSICIAN Family Medicine; OTHER PHYSICIAN Internal Medicine Cardiovascular Disease
DX: I48.0 Paroxysmal atrial fibrillation (principal); I48.3 Typical atrial flutter; E66.9 Obesity, unspecified; I10 Essential (primary) hypertension; I45.10 Unspecified right bundle-branch block; Z79.899 Other long term (current) drug therapy; Z79.01 Long term (current) use of anticoagulants; Z72.0 Tobacco use
CPT/HCPCS: C1733; C1766; C1732; C1894; C1730; C1769; 36415; 75572; 80053; 83735; 85025; 85347; 85610; 86850; 86900; 86901; 93005; 93655; 93656; Q9967